=== PATIENT | female | born 1965 | race Caucasian/White ===

== ENCOUNTER 2025-01-23 11:19 | Day surgery (SDC) | payer MEDICARE, MEDICAID, SELFPAY ==
--- OUTSIDE RECORDS SUMMARY | 2024-12-29 12:35 | XMS_ITS ---
[facility] Name [facility] Organization Unknown Care Team Organization Name Specialty Phone Email Start Date End Da te [facility] ([place])
--- OUTSIDE RECORDS SUMMARY | 2024-12-29 12:35 | XMS_ITS | Clinical Summary ---
Author Organization [address] [place] [address] [place] [phone] Phone Care Team Providers Care Social Science Teacher Name Role Phone Rj Johnson MD Primary Care Provider [phone] Allergies Active Allergy Reactions Criticality Noted Date Comments Penicillins Other 04/20/2023 Other reaction(s): pass out Other Reaction(s): pass out Medications ammonium lactate (AMLACTIN) 12 % cream APPLY TO AFFECTED AREA TWICE A DAY FOR 14 DAYS NEEDED FOR DRY SKIN 2 Active atropine 1 % ophthalmic solution PUT 1 DROP TWICE A DAY INTO RIGHT EYE Active cyclobenzaprine (FLEXERIL) 10 mg tablet TAKE 1 TABLET BY MOUTH TWICE A DAY FOR 14 DAYS Active dicyclomine (BENTYL) 10 mg capsule TAKE 1 CAPSULE BY MOUTH 4 TIMES A DAY FOR 30 DAYS NEEDED FOR SPASMS 3 Active escitalopram (LEXAPRO) 5 mg tablet Take 1 Tablet by mouth daily. Active fluconazole (DIFLUCAN) 150 mg tablet Take 1 Tablet by mouth. 3 Active glimepiride (AMARYL) 1 mg tablet TAKE 1 TABLET BY MOUTH EVERY DAY WITH THE FIRST MEAL OF THE DAY Active losartan (COZAAR) 50 mg tablet Take 1 Tablet by mouth daily. Active meloxicam (MOBIC) 15 mg tablet TAKE 1 TABLET BY MOUTH ONCE A DAY WITH FOOD Oral for 30 3 Active mirtazapine (REMERON) 7.5 mg tablet TAKE 1 TABLET BY MOUTH EVERYDAY AT BEDTIME Oral for 90 Active nortriptyline (PAMELOR) 25 mg capsule Oral for 90 Active omeprazole (PriLOSEC) [address] capsule TAKE 1 CAPSULE BY MOUTH TWICE A DAY 3 Active prednisoLONE acetate (PRED FORTE) 1 % ophthalmic suspension INSTILL 1 DROP INTO RIGHT EYE 4 TIMES A DAY 1 Active simvastatin (ZOCOR) 10 mg tablet TAKE 1 TABLET BY MOUTH DAILY AT BEDTIME FOR HIGH CHOLESTEROL 3 Active tobramycin (TOBREX) 0.3 % ophthalmic solution USE 2 DROPS INTO RIGHT EYE EVERY 4 HOURS FOR 7 DAYS Active triamcinolone (KENALOG) 0.1 % cream APPLY TO AFFECTED AREA TWICE A DAY FOR 14 DAYS Active valsartan (DIOVAN) 80 mg tablet TAKE 1 TABLET BY MOUTH DAILY. WHILE LOSARTAN IS ON BACK ORDER 3 Active Social History Tobacco Use Types Packs/Day Years Used Date Smoking Tobacco: Never Assessed Comments Unknown Sex and Gender Information Value Date Recorded Sex Assigned at Not on file Legal Sex Female 12:59 AM EST Gender Identity Not on file Sexual Orientation Not on file Last Filed Vital Signs Vital Sign Reading Time Taken Comments Blood Pressure - - Pulse - - Temperature - - Respiratory Rate - - Oxygen Saturation - - Inhaled Oxygen Concentration - - Weight 79.4 kg (175 lb) 05/26/2024 9:08 AM EST Height 152.4 cm (5') 05/26/2024 9:08 AM EST Body Mass Index 34.18 05/26/2024 9:08 AM EST Plan of Treatment Upcoming Encounters Date Type Department Care Team (Late st Contact Info) Description 02/04/2025 2:30 PM EDT Office Visit Orthopedic Surgery - [place] [address] [phone] Markos Ospina, DPM [address] [address] Health Maintenance Due Date Last Done Comments Diabetes: Annual Foot Exam 10/17/1973 Diabetes: Annual Retina Eye Exam 10/17/1973 Cervical Cancer Screening: Pap Smear 10/17/1984 Breast Cancer Screening 11/22/2020 11/22/2018 DTaP,Tdap,and Td Vaccines (2 - Td or Tdap) 12/13/2023 12/12/2013 COVID-19 Vaccine ( season) 2024 11/19/2020, 10/29/2020 Cholesterol Screening (Lipid Panel) 02/21/2024 Colorectal Cancer Screening: Colonoscopy 02/21/2024 HIV Screening 02/21/2024 Hepatitis C Screening 02/21/2024 Medicare Annual Wellness Visit 02/21/2024 Social Influencers of Health Screening 02/21/2024 Depression Screening 05/14/2024 Diabetes: Annual Urine Albumin-Creatinine Ratio (uACR) 05/26/2024 Diabetes: Blood Sugar Control Test (HGBA1C) 05/26/2024 08/21/2023 Diabetes: Annual GFR (Glomerular Filtration Rate) 08/20/2024 08/21/2023 Hypertension/CHF/CAD Annual BMP Blood Test 08/20/2024 08/21/2023 Influenza Vaccine (#1) 2025 , 04/12/2023, 01/27/2022, Additional history exists Zoster Vaccines Completed 05/13/2018, 02/14/2018 Pneumococcal Vaccine: 50+ Years Completed 04/21/2024, 12/23/2018 RSV Immunization Adult Patients Completed 04/21/2024 HIB Vaccines Aged Out No longer eligi ble based on patient's age to complete this topic HPV Vaccines Aged Out No longer eligi ble based on patient's age to complete this topic Hepatitis A Vaccines Aged Out No long er eligible based on patient's age to complete this topic Hepatitis B Vaccines Aged Out No long er eligible based on patient's age to complete this topic IPV Vaccines Aged Out No longer eligi ble based on patient's age to complete this topic MMR Vaccines Aged Out No longer eligi ble based on patient's age to complete this topic Meningococcal ACWY Vaccine Aged Out N o longer eligible based on patient's age to complete this topic Meningococcal B Vaccine Aged Out No l onger eligible based on patient's age to complete this topic RSV Immunization Patients Under 20 months Aged Out No longer eligible based on patient's age to complete this topic Varicella Vaccines Aged Out No longer eligible based on patient's age to complete this topic Procedures Procedure Name Priority Date/Time Associated Diagnosis Comments HM ANNUAL BMP BLOOD TEST Routine 08/21/2023 HEMOGLOBIN A1C Routine 08/21/2023 RAKAN SCREENING DIGITAL Routine 11/22/2018 3:38 PM EDT Encounter for screening mammogram for malignant neoplasm of breast from Last 3 Months or Most Recently Relevant to Health Maintenance Results * Annual BMP Blood Test (08/21/2023) Annual BMP Blood Test Abstracted Historical Provider HEALTH MAINTENANCE Final Result * Hemoglobin A1c (08/21/2023) Hemoglobin A1C 0.0 % Comment:No interpretation, A bstracted Blood Venous blood specimen / Unknown Historical Provider LAB BLOOD ORDERABLES Abigail l Result * [facility] SCREENING DIGITAL (11/22/2018 3:38 PM EDT) Anatomical Region Laterality Modality Mammography 11/22/2018 2:39 PM EDT Narrative 11/22/2018 3:38 PM EDT [facility] Diagnostic Imaging Department [address] [place] [address] Patient: BLANCA CUELLAR Jennifer /Age/Sex: 1965 - 53 - F Unit#: [id number] [facility] Mnemonic/Ordering Site: [facility] Ordering Physician: RJ JOHNSON MD Rakan Screening Digital - 11/22/18 - 1534 History: Bilateral breast cancer screening. Technique: Digital mammography. Conventional CC and MLO projections with tomosynthesis MLO views and computer aided detection. Comparison: 04/01/2014, 03/29/2013 and 02/28/2012. Findings: Breast tissue consists of fatty and fibroglandular elements (category b density) bilaterally. There is no suspicious group of microcalcifications, mass, architectural distortion or suspicious change in breast tissue density. Impression: No evidence of malignancy. Breast cancer, if present, is more likely to be diagnosed at a smaller size and earlier stage with more frequent intervals of screening. Recommend annual or biennial mammography. BIRADS category 1; negative study, 3341F [id number], [id number] Note: Patient information entered into a reminder system with a target due date for the next mammogram: CPT II 7025F Dictating Physician: ALFREDO DAMON MD Electronically Signed by: ALFREDO DAMON MD Dic Date/Time: 11/22/181535 Sign date/Time: 11/22/181537 Procedure Note Alfredo Damon - 05/03/2022 [facility] Diagnostic Imaging Department [address] [place] [address] Patient: BLANCA CUELLAR Jennifer /Age/Sex: 1965 - 53 - F Unit#: [id number] Location/Status: [facility] Mnemonic/Ordering Site: [facility] Ordering Physician: RJ JOHNSON MD Rakan Screening Digital - 11/22/18 - 2269 History: Bilateral breast cancer screening. Technique: Digital mammography. Conventional CC and MLO projectionswith tomosynthesis MLO views and computer aided detection. Comparison: 04/01/2014, 03/29/2013 and 02/28/2012. Findings: Breast tissue consists of fatty and fibroglandular elements (category b density) bilaterally. There is no suspicious group of microcalcifications, mass, architectural distortion or suspicious changein breast tissue density. Impression: No evidence of malignancy. Breast cancer, if present, is more likely to be diagnosed at a smallersize and earlier stage with more frequent intervals of screening. Recommend annualor biennial mammography. BIRADS category 1; negative study, 3341F 68805, [id number] Note: Patient information entered into a reminder system with a target duedate for the next mammogram: CPT II 7025F Dictating Physician: ALFREDO DAMON MD Electronically Signed by: ALFREDO DAMON MD Dic Date/Time: 11/22/181535 Sign date/Time: 11/22/181537 Rj Johnson MD IMG BI PROCEDURES Final Re sult from Last 3 Months or Most Recently Relevant to Health Maintenance Insurance MEDICAID - [place] MEDICARE Care Teams Social Science Teacher Relationship Specialty Start Date End Date Rj Johnson MD [address] [place] [address] PCP - General 06/01/23
--- OUTSIDE RECORDS SUMMARY | 2024-12-29 12:35 | XMS_ITS | Patient Health Record ---
Author Organization [facility] Address [address] [place] [phone] Care Team Providers Care Gold And Silver Assayer Name Role Phone Malka Escalante Primary Care Provider Gideon Guo Jr Unavailable Allergies No Known Allergies Reason For Referral No Information Medications Medication SIG (Take, Route, Frequency, Duration) Notes Start Date End Date Status MiraLax (colon prep) 17 GM/SCOOP mixed with Gatorade or Crystal Light Orally begin at 5:00 p.m. the day before the procedure for 1 day 01/08/2023 Not-Taking Nortriptyline HCl 25 MG Oral for 90 Not-Taking Meloxicam 15 MG TAKE 1 TABLET BY CELIA TH ONCE A DAY WITH FOOD Oral for 30 Active Dicyclomine HCl 10 MG Oral for 90 Active FreeStyle Lancets - UES ONCE DAILY DX: E11.9 for 90 Active dilTIAZem HCl ER Coated Beads 180 MG TAKE 1 CAPSULE BY MOUTH TWICE A DAY Oral for 90 Active Jardiance 25 MG 1 tablet Orally Once a day Active Vitamin C 500 MG as directed Orally 01/08/2023 Not-Taking Omeprazole 40 MG 1 capsule Orally Onc e a day for 90 days Active Vitamin D (Cholecalciferol) 10 MCG (400 UNIT) 2 tablets Orally Once a day for 30 day(s) 01/08/2023 Not-Taking Mirtazapine 7.5 MG TAKE 1 TABLET BY CELIA TH EVERYDAY AT BEDTIME Oral for 90 Active Valsartan 80 MG TAKE 1 TABLET BY CELIA TH DAILY. WHILE LOSARTAN IS ON BACK ORDER Oral for 90 Active Simvastatin 10 MG Oral for 90 Active Immunizations Vaccine Route Administration Date Status Comme nts Influenza Unknown 04/04/2022 Administered Social History Tobacco Use: Social History Observation Description Date Details (start date - stop date) Former Smoker 12/23/1970 - 12/13/2022 Tobacco Control (Standard) Question Answer Notes Tobacco use: Former smoker When did you start smoking? 12/23/1970 When did you stop smoking? 12/13/2022 AUDIT-C (Standard) Question Answer Notes Did you have a drink containing alcohol in the p ast year? No Points 0 Interpretation Negative Problems Problem Type SNOMED Code ICD Code Onset Dates Problem Status W/U Status Risk Notes Problem 99400316 Rectal bleeding (K62.5) Active confirmed Problem 859994243 Gastroesophageal reflux disease without esophagitis (K21.9) Active confirmed Vital Signs Heart Rate 80 /min 12/29/2024 Temperature 97.1 degrees Fahrenheit 12/29/2024 Blood pressure diastolic 01 mm Hg 12/29/2024 Height 60 in 12/29/2024 Blood pressure systolic 001 mm Hg 12/29/2024 Weight 176.2 lbs 12/29/2024 BMI 34.41 kg/m2 12/29/2024 Encounters Encounter Location Date Provider Diagnosis [facility] [address] [place] [phone] 12/29/2024 Gideon Contreras Jr Rectal bleeding K62.5 and Gastroesophageal reflux disease without esophagitis K21.9 [facility] [address] [place] [phone] 03/27/2024 Gideon Contreras Jr [facility] [address] [place] [phone] 09/04/2024 Gideon Contreras Jr [facility] [address] [place] [phone] 09/24/2024 Gideon Contreras Jr Assessments Encounter Date Diagnosis (ICD Code) Assessment Notes Treatment Notes Treatment Clinical Notes Section Notes 12/29/2024 Rectal bleeding (ICD-10 - K62.5) We discussed her symptoms today. Her IBS symptoms appear well-controlle d on dicyclomine, and she will continue this. Reflux symptoms are under good control and she will continue omeprazole. Follow-up colonoscopy will be arranged because of her history of rectal bleeding. We discussed risks and benefits of the procedure today. She understands and agrees to proceed. She is advised to stop Jardiance 3 days before the procedure and meloxicam 1 week before the procedure. 12/29/2024 Gastroesophageal reflux disease without esophagitis (ICD-10 - K21.9) We discussed her symptoms today. Her IBS symptoms appear well-controlle d on dicyclomine, and she will continue this. Reflux symptoms are under good control and she will continue omeprazole. Follow-up colonoscopy will be arranged because of her history of rectal bleeding. We discussed risks and benefits of the procedure today. She understands and agrees to proceed. She is advised to stop Jardiance 3 days before the procedure and meloxicam 1 week before the procedure. Plan Of Treatment Future Test Test Name Order Date COLONOSCOPY 01/08/2023 COLONOSCOPY 12/29/2024 Next Appt Details Provider Name:Gideon Angelito meza Jr, 01/16/2025 11:50:00 AM, [address] [place] [address] , [place], [place], [phone], Insurance Providers Payer Name Payer Address Payer Phone Subscriber Number Group Number Insured Name Patient Relationship to Insured Coverage Start Date Coverage End Date MEDICARE OF [place] [address] [place] [id number] DEO CUELLAR Self - patient is the insured 6 MEDICAID OF [facility] [address] [place] [address] [id number] DEO CUELLAR Self - patient is the insured Medical (General) History Medical History History ICD Code Gastroesophageal reflux disease, EGD 201 4, no Augustin's Hyperlipidemia Hypertension plantar fascitis Bipolar disorder Back pain Diabetes mellitus Irritable bowel syndrome Colonoscopy 2014, hyperplastic polyp ten -year followup eczema Abnormal CT scan of the lungs Surgical History Surgery Date(Month/Year) appendectomy Hysterectomy back surgery 2008, 2012
--- OUTSIDE RECORDS SUMMARY | 2024-12-29 12:35 | XMS_ITS | Encounter Summary ---
Author Organization [facility] Address [address] [place] [phone] Phone Care Team Providers Care Apparel Machinery Instructor Name Role Phone Malka Escalante MD Primary Care Provider + Encounter Details Date Type Department Care Team (Late st Contact Info) Description 09/05/2023 Procedure Pass OR Admitting Dept - Virtual Department [address] [place] [address] Social History Tobacco Use Types Packs/Day Years Used Date Smoking Tobacco: Former Cigarettes Q uit: 12/19/2022 Smokeless Tobacco: Never Alcohol Use Standard Drinks/Week Comments Never 0 (1 standard drink = 0.6 oz pur e alcohol) sober 2003 Education Answer Date Recorded Are you interested in more education? Not on sanjay e 03/27/2023 Are you concerned about learning? Not on file 03/27/2023 No 03/27/2023 No 03/27/2023 Digital Access Answer Date Recorded No 03/27/2023 No 03/27/2023 Reliable internet access at home? Not on file 03/27/2023 Device with a working camera? Not on file Comments Unknown Sex and Gender Information Value Date Recorded Sex Assigned at Not on file Legal Sex Female 12:32 PM EDT Gender Identity Not on file Sexual Orientation Not on file documented as of this encounter Plan of Treatment Not on file documented as of this encounter Visit Diagnoses Not on filedocumented in this encounter Care Teams Apparel Machinery Instructor Relationship Specialty Start Date End Date Malka Esaclante MD [address] [place] [address] PCP - General Internal Medicine 03/07/23 documented as of this encounter Additional Source Comments The information contained in this document represents components of the legal health record. It is not the complete legal health record.[facility]
[2025-01-14 14:28] VITALS: BMI 34.4
--- NOTE | 2025-01-15 09:07 | HO.ANESPROP2 ---
Documented by User: Emily Chirinos NP 01/20/25 10:47 HPI - Anesthesia Eval Consult details Narrative: 59yo F for Colonoscopy, 01/23/25 Anesthesia Pre-Procedure Meds Is the patient on any of the following meds?: SGLT2 Inhib PMFSH Past Medical History Medical History Hyperplastic polyp of intestine IBS (irritable bowel syndrome) Diabetes Back pain Bipolar 1 disorder Plantar fasciitis HTN (hypertension) Hyperlipidemia GERD (gastroesophageal reflux disease) Surgical History Surgical History History of back surgery Hx of appendectomy History of hysterectomy H/O colonoscopy History of esophagogastroduodenoscopy (EGD) Social History Social History (Updated 01/14/25 @ 14:28 by Corine Farah RN) Household Members Other:: brother and son Are you a primary care trainer to a significant other at home: No Do you presently have visiting nurse or other home services: No Patient Tobacco Use Status: Former Tobacco user Tobacco use type: Cigarette Have you been hit, kicked, punched, or otherwise hurt by someone within the past year? If so, by whom?: No Are you DNR?: No Advance Directives: No Advance Directives Information Provided: Yes Poor oral hygiene: No Meds Allergies Allergy/AdvReac Type Severity Reaction Status Date / Time No Known Allergies Allergy Verified 01/23/25 11:48 Home Medications ?Medication ?Instructions ?Recorded ?Confirmed ?Last Taken ?Type dicyclomine 10 mg capsule 10 mg PO DAILY 05/30/23 01/14/25 Unknown History diltiazem HCl 180 mg capsule,24 180 mg PO BID 05/30/23 01/14/25 01/23/25 History hr,extended release meloxicam 15 mg tablet 15 mg PO DAILY 05/30/23 01/14/25 Unknown History mirtazapine 7.5 mg tablet 7.5 mg PO BEDTIME 05/30/23 01/14/25 Unknown History omeprazole 40 mg capsule,delayed 40 mg PO DAILY 05/30/23 01/14/25 Unknown History release simvastatin 10 mg tablet 10 mg PO DAILY 05/30/23 01/14/25 Unknown History valsartan 80 mg tablet 80 mg PO DAILY 05/30/23 01/14/25 Unknown History empagliflozin 25 mg tablet 25 mg PO DAILY 01/14/25 01/14/25 01/19/25 History (Jardiance) Exam Height,Weight and Vital Signs: Height 5 ft Weight 79.923 kg Assessment and Plan Assessment Anesthesia Assessment: Chart Reviewed Documented by User: Bailee Alvarado MD 01/23/25 12:14 [facility] Past Medical History Medical History Hyperplastic polyp of intestine IBS (irritable bowel syndrome) Diabetes Back pain Bipolar 1 disorder Plantar fasciitis HTN (hypertension) Hyperlipidemia GERD (gastroesophageal reflux disease) Family History Family history of problems with anesthesia: No Surgical History Surgical History History of back surgery Hx of appendectomy History of hysterectomy H/O colonoscopy History of esophagogastroduodenoscopy (EGD) History of Problems with Anesthesia: No Social History Social History (Updated 01/14/25 @ 14:28 by Corine Farah RN) Household Members Other:: brother and son Are you a primary care trainer to a significant other at home: No Do you presently have visiting nurse or other home services: No Patient Tobacco Use Status: Former Tobacco user Tobacco use type: Cigarette Have you been hit, kicked, punched, or otherwise hurt by someone within the past year? If so, by whom?: No Are you DNR?: No Advance Directives: No Advance Directives Information Provided: Yes Poor oral hygiene: No Meds Allergies Allergy/AdvReac Type Severity Reaction Status Date / Time No Known Allergies Allergy Verified 01/23/25 11:48 Home Medications ?Medication ?Instructions ?Recorded ?Confirmed ?Last Taken ?Type dicyclomine 10 mg capsule 10 mg PO DAILY 05/30/23 01/14/25 Unknown History diltiazem HCl 180 mg capsule,24 180 mg PO BID 05/30/23 01/14/25 01/23/25 History hr,extended release meloxicam 15 mg tablet 15 mg PO DAILY 05/30/23 01/14/25 Unknown History mirtazapine 7.5 mg tablet 7.5 mg PO BEDTIME 05/30/23 01/14/25 Unknown History omeprazole 40 mg capsule,delayed 40 mg PO DAILY 05/30/23 01/14/25 Unknown History release simvastatin 10 mg tablet 10 mg PO DAILY 05/30/23 01/14/25 Unknown History valsartan 80 mg tablet 80 mg PO DAILY 05/30/23 01/14/25 Unknown History empagliflozin 25 mg tablet 25 mg PO DAILY 01/14/25 01/14/25 01/19/25 History (Jardiance) Exam Airway Mallampati Class: III TM Dist: >3cm Neck ROM: Full Heart: rrr Lungs: cta Assessment and Plan Assessment Anesthesia Assessment: Anesthesia Plan Discussed Final Anesthetic Review Family History of Problems with Anesthesia: No History of Problems with Anesthesia: No NPO: Yes ASA Class: II Final Preanesthetic Review: No Changes in Pt Med Stat, Meds/Allgs Chart Reviewed and Consent Obtained/Reviewed Patient Risk: Low Procedure Risk: Low Anesthetic Plan Anesthetic Plan: MAC: Disposition: Standard PACU
[2025-01-23 11:46] VITALS: BP 137/74; PULSE 73; RESP 18; TEMP 36.7; O2SAT 95
[2025-01-23] MEDS: Lactated Ringers 1,000 ML 100 ML IVCONT (11:46)
[2025-01-23 11:47] VITALS: BMI 34.0
[2025-01-23 11:52] LABS: Glucose, Whole Blood 143 mg/dL (60-115)
--- NOTE | 2025-01-23 12:18 | MHC.SHP ---
Pre-Procedural Eval Section A - 24 Hr Update-Section A only Date of Service: 01/23/25 Section B - Complete if H&P > 30 days Chief Complaint: Hemorrhage of anus and rectum Details of Present Illness: see H&P Relevant Family History (Specify if Yes): No Relevant Social History: None Present Medications: see Short Stay Collaborative assessment Medical History: No relevant PMH History of Previous Operations: No relevant previous surgery Allergies: Allergies Allergy/AdvReac Type Severity Reaction Status Date / Time No Known Allergies Allergy Verified 01/23/25 11:48 Review of Systems Sugical H&P ROS: Negative: Constitution, Cardiovascular, Respiratory, Neurological, Psychiatric, Hem-Onc, Allergic/Immunologic, Gastrointestinal, Genitourinary, Musculoskeletal, Integumentary, Endocrine and Eyes/Ears/Nose/Throat Exam Surgical H&P Exam: Normal: HEENT, Normal: Heart, Normal: Lungs, Normal: Extremities, Normal: Abdomen, Normal: Skin and Normal: Neurological Plan Diagnosis/Plan: Unchanged I have reviewed the history and physical and performed a pertinent physical examination on my patient. No changes have occurred unless specified. Time Spent With Patient Time: Total time managing care of this patient today ____ minutes.
[2025-01-23 12:57] VITALS: BP 127/72; TEMP 36.1
[2025-01-23 13:12] VITALS: BP 141/80; PULSE 67; TEMP 36.1; O2SAT 95
--- NOTE | 2025-01-23 13:19 | OP_ITS ---
DATE OF SERVICE: 01/23/2025 SURGEON: Gideon Contreras MD INDICATIONS: Colon cancer screening and rectal bleeding. PREOPERATIVE DIAGNOSIS: POSTOPERATIVE DIAGNOSIS: PROCEDURE PERFORMED: Colonoscopy to the terminal ileum with biopsy. ESTIMATED BLOOD LOSS: COMPLICATIONS: ANESTHESIA: Monitored anesthesia care. ASSISTANTS: SPECIMENS: DESCRIPTION OF PROCEDURE: A history and physical was performed. The risks and benefits of the procedure were explained to the patient, and informed consent was obtained. The patient was placed in the left lateral decubitus position. A digital rectal exam was performed and was found to be normal. The Olympus pediatric video colonoscope was introduced into the rectum and advanced to the cecum. The cecum was identified by transillumination, palpation, and identification of the ileocecal valve. Examination was performed. The scope was removed. She tolerated the procedure well and was returned to the recovery area in stable condition. FINDINGS: The terminal ileum was examined and appeared normal. The visualized colonic mucosa was normal. There was some liquid stool left, which was washed and suctioned. This did limit the examination to a mild degree. Two polyps were identified and removed with biopsy forceps. Both measured less than 5 mm. These were located at the hepatic flexure and in the rectum. Retroflexed examination showed small internal hemorrhoids. IMPRESSION: Colon polyps. RECOMMENDATION: Follow up the biopsy results. MD CRISTINA Soriano/VALE / [id number]
== END 2025-01-23 13:48 | disposition home or self-care (01) ==
PROVIDERS: PCP Internal Medicine; Visit Provider Internal Medicine Gastroenterology
PROC: 0DJD8ZZ Inspection of Lower Intestinal Tract, Via Natural or Artificial Opening Endoscopic (ICD-10-PCS; CPT 45378; principal; 2025-01-23 12:40)
DX: Z12.11 Encounter for screening for malignant neoplasm of colon (principal); K63.5 Polyp of colon; K64.8 Other hemorrhoids; I10 Essential (primary) hypertension; E78.5 Hyperlipidemia, unspecified; E11.9 Type 2 diabetes mellitus without complications; C34.90 Malignant neoplasm of unspecified part of unspecified bronchus or lung; K21.9 Gastro-esophageal reflux disease without esophagitis; Z87.891 Personal history of nicotine dependence; Z79.02 Long term (current) use of antithrombotics/antiplatelets; Z79.899 Other long term (current) drug therapy
CPT/HCPCS: 45380; 82947; 88305; J2003; J2704